=== PATIENT | female | born 1985 | race Caucasian/White ===

== ENCOUNTER → 2017-12-18 | Outpatient (CLI) | payer MEDICAID ==
[~2017-12-18] MED LIST: CPH250CIP; DICY10CA26; HYDROCODONE 5/500; [UNRECOGNIZED DRUG - OTHER]
--- NOTE | 2017-12-18 12:25 | Diagnostic Imaging Report ---
PROCEDURE: MRI lumbar spine. TECHNIQUE: Multiplanar, multisequence MRI of the lumbar spine was performed without contrast. DATE: December 18, 2017. COMPARISON: None. INDICATION: 32-year-old female, low back pain with bilateral leg pain and numbness. FINDINGS: There is grade 1 anterolisthesis of L4 on L5 measuring 6.5 mm. There are bilateral L4 pars interarticularis defects. The additional alignment of the lumbar spine is unremarkable. There is moderate disc height loss at L4-L5 with adjacent Modic endplate degenerative related marrow changes. There is no evidence of marrow infiltrating or replacing process. The additional bone marrow signal is unremarkable. There is no compression deformity. The visualized cord and conus medullaris is unremarkable and terminates at the L1 level. The additional disc heights are well preserved. L1-L2: There is no disc bulge. The facet joints and ligamentum flavum are unremarkable. There is no foraminal narrowing. There is no spinal canal stenosis. L2-L3: There is no disc bulge. The facet joints and ligamentum flavum are unremarkable. There is no foraminal narrowing. There is no spinal canal stenosis. L3-L4: There is no disc bulge. There are mild bilateral facet degenerative changes without ligamentum flavum hypertrophy. There is mild bilateral foraminal narrowing. There is no spinal canal stenosis. L4-L5: There is uncovering of the disc relating to the grade 1 anterolisthesis. The facet joints and ligamentum flavum are unremarkable. There is mild bilateral foraminal narrowing. There is no spinal canal stenosis. L5-S1: There is no disc bulge. The facet joints and ligamentum flavum are unremarkable. There is no foraminal narrowing. There is no spinal canal stenosis. IMPRESSION: 1. Bilateral L4 pars interarticularis defects with associated grade 1 anterolisthesis of L4 on L5. 2. L3-L4 mild bilateral facet degenerative changes with mild bilateral foraminal narrowing at this level. 3. Mild bilateral foraminal narrowing at L4-L5. There is moderate disc height loss at this level. Dictated by: Dictated on workstation # [id number]
== END ==
LOC: RAD 10:31
PROVIDERS: ATTEND Family Medicine
DX: M48.061 Spinal stenosis, lumbar region without neurogenic claudication (principal); M99.73 Connective tissue and disc stenosis of intervertebral foramina of lumbar region; M51.16 Intervertebral disc disorders with radiculopathy, lumbar region; M43.16 Spondylolisthesis, lumbar region; F32.9 Major depressive disorder, single episode, unspecified; M79.2 Neuralgia and neuritis, unspecified; M47.816 Spondylosis without myelopathy or radiculopathy, lumbar region
CPT/HCPCS: 72148

== ENCOUNTER 2019-09-23 09:15 | Emergency (ER) | payer MEDICAID ==
[~2019-09-23] VITALS: Ht 162 cm; Wt 82.0 kg
[2019-09-23] MEDS ORDERED: MORP-68 (09:35)
[2019-09-23] MEDS ORDERED: CYCL10TA9 (09:35)
[2019-09-23] MEDS ORDERED: AMIT10TA6 (09:35)
[2019-09-23] MEDS ORDERED: OXYC-529 (09:35)
[2019-09-23 10:00] LABS: BILIRUBIN,URINE NEGATIVE (NEGATIVE); CLARITY,URINE CLEAR; COLOR,URINE YELLOW; GLUCOSE, URINE (UA) NEGATIVE (NEGATIVE); KETONES,URINE NEGATIVE (NEGATIVE); LEUKOCYTE ESTERASE ,URINE 2+ (NEGATIVE); NITRITE,URINE NEGATIVE (NEGATIVE); PROTEIN,URINE NEGATIVE (NEGATIVE)
[2019-09-23] MEDS ORDERED: KETOROLAC 60 MG/2 ML VIAL IM ONE (10:00)
--- NOTE | 2019-09-23 10:00 | ED Hip Pain/Injury ---
General Chief Complaint: Hip/Pelvic Problems Stated Complaint: L LEG PAIN Nursing Triage Note: PT TO FT2 CO OF L HIP AND LEG PAIN STARTED 3 DAYS AGO. STATES HAS HX OF CHRONIC BACK PAIN. PT STATES IS OUT OF HYDROCODONES Source: patient Exam Limitations: no limitations History of Present Illness Date Seen by Provider: Sep 23, 2019 Time Seen by Provider: 09:40 Initial Comments Patient presents to ER by private conveyance with chief complaint that she had difficulty sleeping last night because of left hip pain. It's been going on for about 2-3 days. Progressively worsening. Difficult to put pressure on her left hip. She says feels pain anteriorly and deep. She has no history of fracture fall or injury to her hip however about 10 days ago she had rolled her right ankle is been walking funny because of that. She says her ankle is getting better. She typically uses morphine sulfate 15 mg twice a day and oxycodone 5 mg 2-3 times a day. She's been out of the oxycodone for the past 5 or 6 days. She takes the opiates because of a bad back which has had extensive workup and i maging in the past followed by a doctor at [facility]. She does not take ibuprofen Aleve or naproxen because she says she has a history of ulcers. She's having no GERD, indigestion or nausea presently. She has had urgency of urination recently and because of her hip pain at the periumbilical her for her to get to the bathroom fast enough. No history of kidney stones. No new back pain. Allergies and Home Medications Allergies Coded Allergies: Erythromycin Base (Verified Allergy, Unknown, 11/08/07) Patient Home Medication List Home Medication List Reviewed: Yes Review of Systems Constitutional: No chills, No diaphoresis EENTM: No ear discharge, No ear pain Respiratory: No cough, No short of breath Cardiovascular: No chest pain, No palpitations Gastrointestinal: No abdominal pain, No nausea, No vomiting Genitourinary: No dysuria; frequency, other (urgency) : No Control/STD Prophylaxis: Other (tubal ligation) Musculoskeletal: back pain (chronic), joint pain (left hip) Skin: No pruritus, No rash All Other Systems Reviewed Negative Unless Noted: Yes Past Wzwplhw-Qvxqzt-Syatid Hx Patient Social History Alcohol Use: Denies Use Recreational Drug Use: No Smoking Status: Current Everyday Smoker Type Used: Cigarettes Recent Foreign Travel: No Contact w/Someone Who Travel: No Recent Infectious Disease Expo: No Recent Hopitalizations: No Physical Abuse: No Sexual Abuse: No Past Medical History Surgeries: No Cardiac: No Reproductive Disorders: No BACK END ARCHITECT History: Tubal Ligation Gastrointestinal: Yes Musculoskeletal: No Endocrine: No Psychosocial: No Blood Disorders: No Physical Exam Vital Signs Vital Signs - First Documented 09/23/19 09:25 Temp 36.7 Pulse 68 Resp 20 B/P (MAP) 135/89 (104) Capillary Refill : Less Than 3 Seconds Height, Weight, BMI Height: '" Weight: lbs. oz. kg; 31.00 BMI Method: General Appearance: WD/WN, Mild Distress HEENT: PERRL/EOMI, Pharynx Normal, Moist Mucous Membranes Neck: Full Range of Motion, Normal Inspection Cardiovascular: Regular Rate, Rhythm, No Edema Respiratory: No Accessory Muscle Use, No Respiratory Distress Peripheral Pulses: 2+ Radial Pulses (R), 2+ Radial Pulses (L) Gastrointestinal: Normal Bowel Sounds, Non Tender, Soft Extremity: Normal Capillary Refill, Normal Inspection, Other (tenderness to palpation anterior left hip; less so lateral. Tender in the medial thigh with varicosities.) Neurologic/Psychiatric: Alert, Oriented x3 Skin: Normal Color, Warm/Dry Progress/Results/Core Measures Results/Orders Lab Results Laboratory Tests Test 09/23/19 09:55 09/23/19 10:44 Range/Units Urine Color YELLOW Urine Clarity CLEAR Urine pH 6.0 5-9 Urine Specific [place] 1.010 L 1.016-1.022 Urine Protein NEGATIVE NEGATIVE Urine Glucose (UA) NEGATIVE NEGATIVE Urine Ketones NEGATIVE NEGATIVE Urine Nitrite NEGATIVE NEGATIVE Urine Bilirubin NEGATIVE NEGATIVE Urine Urobilinogen 0.2 < = 1.0 MG/DL Urine Leukocyte Esterase 2+ H NEGATIVE Urine RBC (Auto) 2+ H NEGATIVE Urine RBC 0-2 /HPF Urine WBC 0-2 /HPF Urine Squamous Epithelial Cells 2-5 /HPF Urine Crystals NONE /LPF Urine Bacteria TRACE /HPF Urine Casts NONE /LPF Urine Mucus NEGATIVE /LPF Urine Trichomonas FEW H /HPF Urine Culture Indicated NO White Blood Count 14.3 H 4.3-11.0 10^3/uL Red Blood Count 4.61 4.35-5.85 10^6/uL Hemoglobin 14.2 11.5-16.0 G/DL Hematocrit 42 35-52 % Mean Corpuscular Volume 92 80-99 FL Mean Corpuscular Hemoglobin 31 25-34 PG Mean Corpuscular Hemoglobin Concent 34 32-36 G/DL Red Cell Distribution Width 13.5 10.0-14.5 % Platelet Count 265 130-400 10^3/uL Mean Platelet Volume 9.6 7.4-10.4 FL Neutrophils (%) (Auto) 72 42-75 % Lymphocytes (%) (Auto) 20 12-44 % Monocytes (%) (Auto) 7 0-12 % Eosinophils (%) (Auto) 1 0-10 % Basophils (%) (Auto) 0 0-10 % Neutrophils # (Auto) 10.3 H 1.8-7.8 X 10^3 Lymphocytes # (Auto) 2.9 1.0-4.0 X 10^3 Monocytes # (Auto) 1.0 0.0-1.0 X 10^3 Eosinophils # (Auto) 0.1 0.0-0.3 10^3/uL Basophils # (Auto) 0.0 0.0-0.1 10^3/uL D-Dimer <= 0.27 0.00-0.49 UG/ML Sodium Level 135 135-145 MMOL/L Potassium Level 4.6 3.6-5.0 MMOL/L Chloride Level 103 98-107 MMOL/L Carbon Dioxide Level 22 21-32 MMOL/L Anion Gap 10 5-14 MMOL/L Blood Urea Nitrogen 12 7-18 MG/DL Creatinine 0.69 0.60-1.30 MG/DL Estimat Glomerular Filtration Rate > 60 BUN/Creatinine Ratio 17 Glucose Level 92 70-105 MG/DL Calcium Level 9.2 8.5-10.1 MG/DL My Orders Orders - REI LYNN Ua Culture If Indicated (09/23/19 09:52) Pelvis With Left Hip 2-3 Views (09/23/19 09:52) Ketorolac Injection (Toradol Injection) (09/23/19 10:00) Cbc With Automated Diff (09/23/19 10:01) Basic Metabolic Panel (09/23/19 10:01) Fibrin Degradation Products (09/23/19 10:01) Manual Differential (09/23/19 10:44) Oxycodone/Apap 5/325mg Tablet (Percocet (09/23/19 11:30) Medications Given in ED Current Medications Medications Dose Ordered Sig/Sesar Route Start Time Stop Time Status Last Admin Dose Admin Ketorolac Tromethamine 60 mg ONCE ONCE IM 09/23/19 10:00 09/23/19 10:01 DC 09/23/19 10:13 60 MG Vital Signs/I&O 09/23/19 09:25 Temp 36.7 Pulse 68 Resp 20 B/P (MAP) 135/89 (104) Blood Pressure Mean: 104 Progress Progress Note : Time: 10:00 Progress Note Plan to get an x-ray of her left hip, d-dimer basic labs. Her abdomen is not really tender. She's having a fever or other inflammatory signs. We'll start with some Toradol, urinalysis and if that doesn't help then we can give her oxycodone. Diagnostic Imaging Diagonstic Imaging: Xray Plain Films/CT/US/NM/MRI: pelvis, hip (left) Comments [facility], [place] NAME: JOSE KOTHARI [facility] REC#: [id number] PT STATUS: REG ER : 1985 PHYSICIAN: REI LYNN MD ADMIT DATE: 09/23/19/ER Signed Date of Exam:09/23/19 PELVIS WITH LEFT HIP 2-3 VIEWS Indication: Left hip pain AP view pelvis and 2 views of left hip are obtained There are postsurgical changes from a tubal ligation. Pelvic ring is intact. Hip joint spaces are well-maintained. There is no fracture or dislocation. IMPRESSION: Negative pelvis and left hip Dictated by: Dictated on workstation # [id number] Dict: 09/23/19 1027 Trans: 09/23/19 1028 [id number] Interpreted by: ZAHIDA ADKINS MD Electronically signed by: ZAHIDA ADKINS MD 09/23/19 1028 Reviewed: Reviewed by Me Departure Impression Primary Impression: Left hip pain Disposition: 01 HOME, SELF-CARE Condition: Stable Departure-Patient Inst. Decision time for Depature: 11:38 Referrals: NO,LOCAL PHYSICIAN (PCP/Family) Primary Care Physician Patient Instructions: Hip Pain (DC) Add. Discharge Instructions: I suspect your left hip pain is related to your having walked funny is related to your right ankle sprain. For the next week or so you can use the crutches to reduce how much weight you put on your hip. Follow-up next week with your primary care doctor for reevaluation and if your symptoms are not improving they can discuss further evaluation and management. Take the prescription naproxen 1 tablet twice a day on a scheduled basis. In addition to this you can use Tylenol 1000 mg every 8 hours. Heating pads and topical creams such as icy hot or Biofreeze can be useful. All discharge instructions reviewed with patient and/or family. Voiced understanding. Scripts Omeprazole (Omeprazole) 40 Mg Capsule.dr 40 MG PO DAILY for 14 Days, #14 CAP 0 Refills Prov: REI LYNN 09/23/19 Naproxen (Naprosyn) 500 Mg Tablet 500 MG PO BID for 14 Days, #30 TAB 0 Refills Prov: REI LYNN 09/23/19 Work/School Note: Work Release Form Date Seen in the Emergency Department: Sep 23, 2019 Return to Work: Sep 24, 2019 Restrictions: Need Release from Doctor Other Restrictions Listed Below: Light duty, decreased walking or standing. REI LYNN Sep 23, 2019 10:00
[2019-09-23 10:28] LABS: BACTERIA,URINE TRACE /HPF; RBC,URINE 0-2 /HPF; WBC,URINE 0-2 /HPF
[2019-09-23 10:29] LABS: TRICHOMONAS,URINE FEW /HPF
--- NOTE | 2019-09-23 10:29 | Diagnostic Imaging Report ---
Indication: Left hip pain AP view pelvis and 2 views of left hip are obtained There are postsurgical changes from a tubal ligation. Pelvic ring is intact. Hip joint spaces are well-maintained. There is no fracture or dislocation. IMPRESSION: Negative pelvis and left hip Dictated by: Dictated on workstation # [id number]
[2019-09-23 10:49] LABS: BASOPHILS % (AUTO) 0 % (0-10); EOSINOPHILS # (AUTO) 0.1 10^3/uL (0.0-0.3); EOSINOPHILS % (AUTO) 1 % (0-10); HEMATOCRIT 42 % (35-52); HEMOGLOBIN 14.2 G/DL (11.5-16.0); LYMPHOCYTES # (AUTO) 2.9 X 10^3 (1.0-4.0); LYMPHOCYTES % (AUTO) 20 % (12-44); MEAN CORPUSCULAR HEMOGLOBIN 31 PG (25-34); MEAN CORPUSCULAR HGB CONC 34 G/DL (32-36); MEAN CORPUSCULAR VOLUME 92 FL (80-99); MEAN PLATELET VOLUME 9.6 FL (7.4-10.4); MONOCYTES % (AUTO) 7 % (0-12); NEUTROPHILS # (AUTO) 10.3 X 10^3 (1.8-7.8); NEUTROPHILS % (AUTO) 72 % (42-75); PLATELET COUNT 265 10^3/uL (130-400); RED CELL DISTRIBUTION WIDTH 13.5 % (10.0-14.5); WHITE BLOOD COUNT 14.3 10^3/uL (4.3-11.0)
[2019-09-23 11:04] LABS: BUN/CREATININE RATIO 17; CALCIUM 9.2 MG/DL (8.5-10.1); CARBON DIOXIDE 22 MMOL/L (21-32); CHLORIDE 103 MMOL/L (98-107); CREATININE SERUM 0.69 MG/DL (0.60-1.30); GFR ESTIMATED > 60; GLUCOSE 92 MG/DL (70-105); POTASSIUM 4.6 MMOL/L (3.6-5.0); SODIUM 135 MMOL/L (135-145)
[2019-09-23] MEDS ORDERED: oxyCODONE/APAP 5/325MG (PERCOCET 5) TABLET PO ONE (11:30)
[2019-09-23 11:38] LABS: LYMPHOCYTES % (MANUAL) 23 %; MONOCYTES % (MANUAL) 8 %; NEUTROPHILS % (MANUAL) 68 %
[2019-09-23 11:39] LABS: EOSINOPHILS % (MANUAL) 1 %; RBC MORPH NORMAL
[2019-09-23] MEDS ORDERED: OMEP40CA27 PO (11:40)
[2019-09-23] MEDS ORDERED: NAPR-1071 PO (11:40)
[2019-09-23 11:47] VITALS: BP 135/86
== END 2019-09-23 11:49 | disposition home or self-care (01) ==
LOC: EDUNIT# 09:15 → ER 09:16
DX: M25.552 Pain in left hip (principal); F17.210 Nicotine dependence, cigarettes, uncomplicated; Z88.1 Allergy status to other antibiotic agents
CPT/HCPCS: 36415; 80048; 81000; 85007; 85027; 85379

== ENCOUNTER → 2019-10-29 | Outpatient (CLI) | payer MEDICAID ==
[~2019-10-29] MED LIST changes: +AMIT10TA6; +CYCL10TA9; +MORP-68; +NAPR-1071 PO; +OMEP40CA27 PO; +OXYC5TAB96
--- NOTE | 2019-10-29 10:41 | Diagnostic Imaging Report ---
PROCEDURE: MRI lumbar spine. TECHNIQUE: Multiplanar, multisequence MRI of the lumbar spine was performed without contrast. DATE: October 29, 2019. COMPARISON: MRI lumbar spine December 18, 2017. INDICATION: 34-year-old female, increasing low back pain and radiculopathy. FINDINGS: There is grade 1 anterolisthesis of L4 on L5 measuring 7 mm. This is unchanged since comparison exam. There are bilateral L4 pars interarticularis defects. The additional alignment of the lumbar spine is unremarkable. There is no evidence of a diffuse marrow infiltrating or replacing process. There is no compression deformity or other fracture. There is moderate severe disc height loss at L4-L5. The additional disc heights are well preserved. The visualized portions of the spinal cord are unremarkable in signal. The conus medullaris terminates at the level of L1. L1-L2: There is no disc bulge. The facet joints and ligamentum flavum are unremarkable. There is no foraminal narrowing. There is no spinal canal stenosis. L2-L3: There is no disc bulge. The facet joints and ligamentum flavum are unremarkable. There is no foraminal narrowing. There is no spinal canal stenosis. L3-L4: There is no disc bulge. The facet joints and ligamentum flavum are unremarkable. There is no foraminal narrowing. There is no spinal canal stenosis. L4-L5: There is uncovering of the disc relating to the anterolisthesis. There is no superimposed disc protrusion or extrusion. There are mild bilateral facet degenerative changes. There is mild bilateral foraminal narrowing. There is no spinal canal stenosis. L5-S1: There is no disc bulge. The facet joints and ligamentum flavum are unremarkable. There is no foraminal narrowing. There is no spinal canal stenosis. IMPRESSION: 1. Redemonstrated bilateral L4 pars interarticularis defects bilaterally with grade 1 anterolisthesis of L4 on L5 measuring 7 mm. This is unchanged since December 18, 2017. 2. There is mild bilateral foraminal narrowing at L4-L5 and moderate disc height loss at this level which is unchanged since comparison exam. Dictated by: Dictated on workstation # [id number]
== END ==
LOC: RAD 09:02
PROVIDERS: ATTEND Family Medicine
DX: M54.16 Radiculopathy, lumbar region (principal)
CPT/HCPCS: 72148